=== PATIENT | male | born 1995 | race American Indian/Alaskan Native ===

== ENCOUNTER 2016-10-23 12:16 | Emergency (ER) | payer SELFPAY ==
[2016-10-23 12:41] VITALS: BP 139/85
== END 2016-10-23 12:58 | disposition left against medical advice (07) ==
LOC: ED 12:16
DX: Z53.21 Procedure and treatment not carried out due to patient leaving prior to being seen by health care provider (principal)
CPT/HCPCS: 87591

== ENCOUNTER 2019-08-14 20:50 | Emergency (ER) | payer SELFPAY ==
--- NOTE | 2019-08-14 21:35 | XRay Report ---
CHEST 2 VIEWS INDICATION / CLINICAL INFORMATION: Chest pain. COMPARISON: None available. FINDINGS: SUPPORT DEVICES: None. HEART / MEDIASTINUM: No significant abnormality. LUNGS / PLEURA: No significant pulmonary or pleural abnormality. No pneumothorax. ADDITIONAL FINDINGS: No significant additional findings. IMPRESSION: 1. No acute findings. Signer Name: Oli Ochoa MD Signed: 08/14/2019 9:31 PM Workstation Name: [id number]
[2019-08-14] MEDS ORDERED: predniSONE 20 MG TAB PO ONE (22:38)
[2019-08-14] MEDS ORDERED: IBUPROFEN 600 MG TAB PO ONE (22:38)
--- NOTE | 2019-08-15 00:04 | Emergency Department Report ---
ED General Adult HPI - General Chief complaint: Upper Respiratory Infection Stated complaint: CHEST PAIN, NAUSEA Source: patient Mode of arrival: Ambulatory Limitations: No Limitations - History of Present Illness Initial comments: Patient is a 24-year-old -[place] male with no past medical history and who does not smoke cigarettes, use illegal drugs or drink alcohol presents to the ED with complaint of acute exacerbation of his chronic left-sided chest wall pain, pleuritic chest pain and persistent dry cough for the last 1 week. Patient states that he has had these symptoms intermittently for the last 6 months and has been evaluated in the ED establishment and each time he is told that his test results are normal and his discharge home with no medicine. Mihir nt states that the last 1 week he has been having persistent severe dry cough and worsening left-sided chest wall pain with each coughing episode. Patient also states that his job entails heavy lifting and being on his feet all day at work and that after the shift at work the pain gets worse. Patient states that the last time he was in the emergency department was 2 weeks ago for evaluation of similar symptoms. Patient states that the current symptoms are no different from the previous symptoms that he has had before. Patient denies diaphoresis, shortness of breath, sore throat, fever, chills, dizziness, syncope, palpitations, nausea, vomiting, abdominal pain, numbness and tingling or weakness of upper and lower extremities bilaterally and headache. MD Complaint: Dry cough, left-sided chest pain; pleuritic chest pain -: Gradual, month(s) (6) Location: chest Radiation: non-radiation Severity scale (0 -10): 7 Quality: aching, sharp Consistency: intermittent Improves with: none Worsens with: movement, other (Heavy lifting) Associated Symptoms: denies other symptoms, chest pain (Left-sided chest wall pain). denies: confusion, cough, diaphoresis, fever/chills, headaches, loss of appetite, malaise, nausea/vomiting, rash, seizure, shortness of breath, syncope, weakness Treatments Prior to Arrival: none - Related Data Previous Rx's Medication Instructions Recorded Last Taken Type Benzonatate [Tessalon Perles] 100 mg PO Q8HR #30 capsule 08/15/19 Unknown Rx Naproxen 500 mg PO Q12H PRN #24 tablet 08/15/19 Unknown Rx Allergies Allergy/AdvReac Type Severity Reaction Status Date / Time No Known Allergies Allergy Unverified 10/23/16 12:40 ED Review of Systems ROS: Stated complaint: CHEST PAIN, NAUSEA Other details as noted in HPI Constitutional: denies: chills, fever Eyes: denies: eye pain, eye discharge, vision change ENT: denies: ear pain, throat pain Respiratory: cough. denies: shortness of breath, wheezing Cardiovascular: chest pain (Left-sided chest wall pain and pleuritic chest pain with cough). denies: palpitations Endocrine: no symptoms reported Gastrointestinal: denies: abdominal pain, nausea, diarrhea Genitourinary: denies: urgency, dysuria Musculoskeletal: denies: back pain, joint swelling, arthralgia Skin: denies: rash, lesions Neurological: denies: headache, weakness, paresthesias Psychiatric: denies: anxiety, depression Hematological/Lymphatic: denies: easy bleeding, easy bruising ED Past Medical Hx - Past Medical History Previous Medical History?: No - Surgical History Past Surgical History?: No - Social History Smoking Status: Never Smoker Substance Use Type: None - Medications Home Medications: Home Medications Medication Instructions Recorded Confirmed Last Taken Type Benzonatate [Tessalon Perles] 100 mg PO Q8HR #30 capsule 08/15/19 Unknown Rx Naproxen 500 mg PO Q12H PRN #24 tablet 08/15/19 Unknown Rx ED Physical Exam - General Limitations: No Limitations General appearance: alert, in no apparent distress - Head Head exam: Present: atraumatic, normocephalic - Eye Eye exam: Present: normal appearance, PERRL, EOMI - ENT ENT exam: Present: normal exam, normal orophraynx, mucous membranes moist, TM's normal bilaterally, normal external ear exam - Neck Neck exam: Present: normal inspection, full ROM - Respiratory Respiratory exam: Present: normal lung sounds bilaterally, chest wall tenderness (Palpable reproducible left-sided chest wall tenderness). Absent: respiratory distress, wheezes, rales, rhonchi, accessory muscle use - Cardiovascular Cardiovascular Exam: Present: regular rate, normal rhythm. Absent: systolic murmur, diastolic murmur, rubs, gallop - GI/Abdominal GI/Abdominal exam: Present: soft, normal bowel sounds. Absent: tenderness, guarding, hyperactive bowel sounds - Extremities Exam Extremities exam: Present: normal inspection, full ROM, normal capillary refill - Back Exam Back exam: Present: normal inspection, full ROM. Absent: tenderness, CVA tenderness (R), CVA tenderness (L), muscle spasm, paraspinal tenderness, vertebral tenderness - Neurological Exam Neurological exam: Present: alert, oriented X3, CN II-XII intact, normal gait, reflexes normal - Psychiatric Psychiatric exam: Present: normal affect, normal mood - Skin Skin exam: Present: warm, dry, intact, normal color. Absent: rash ED Course Vital Signs 08/14/19 08/14/19 20:56 23:35 Temperature 98.9 F Pulse Rate 91 H Respiratory 18 18 Rate Blood Pressure 144/88 O2 Sat by Pulse 99 Oximetry ED Medical Decision Making - Radiology Data Radiology results: report reviewed, image reviewed Findings [facility] [address] [place] [address] XRay Report Signed Patient: REEMA REED MR#: [id number] : 1995 Acct:[id number] Age/Sex: 24 / M ADM Date: 08/14/19 Loc: ED Attending Dr: Ordering Physician: ELY THOMAS MD Date of Service: 08/14/19 Procedure(s): XR chest routine 2V Accession Number(s): [id number] cc: ED MD WILLIAM Fluoro Time In Minutes: CHEST 2 VIEWS INDICATION / CLINICAL INFORMATION: Chest pain. COMPARISON: None available. FINDINGS: SUPPORT DEVICES: None. HEART / MEDIASTINUM: No significant abnormality. LUNGS / PLEURA: No significant pulmonary or pleural abnormality. No pneumothorax. ADDITIONAL FINDINGS: No significant additional findings. IMPRESSION: 1. No acute findings. Signer Name: Oli Ochoa MD Signed: 08/14/2019 9:31 PM Workstation Name: [id number] Transcribed By: DT Dictated By: Ras Ochoa MD Electronically Authenticated By: Ras Ochoa MD Signed Date/Time: 08/14/192130 DD/ 29 TD/TT: - Medical Decision Making This is a 24-year-old -[place] male with no past medical history and who does not smoke cigarettes, use illegal drugs or drink alcohol presents to the ED with complaint of acute exacerbation of his chronic left-sided chest wall pain, pleuritic chest pain and persistent dry cough for the last 1 week. Patient states that he has had these symptoms intermittently for the last 6 months and has been evaluated in the ED establishment and each time he is told that his test results are normal and his discharge home with no medicine. Patient states that the last 1 week he has been having persistent severe dry cough and worsening left-sided chest wall pain with each coughing episode. Patient also states that his job entails heavy lifting and being on his feet all day at work and that after the shift at work the pain gets worse. Patient states that the last time he was in the emergency department was 2 weeks ago for evaluation of similar symptoms. Patient states that the current symptoms are no different from the previous symptoms that he has had before. In the ED, patient is alert and oriented x3 and is not in distress. Chest x-ray shows no acute cardiopulmonary abnormalities or pneumonitis. Physical exam shows reproducible left-sided chest wall tenderness consistent with costochondritis of the chest wall. The patient is PERC negative per Wells criteria, and is heart score is 0. Patient symptoms are unlikely to be cardiac in etiology based on the chronic nature of his symptoms, heart score of 0 due to absence of cardiac risk factors. Patient was treated for pain with anti-inflammatory medications. On reevaluation, patient's pain is well controlled with medication. Patient was discharged home on anti-inflammatory medications and cough medications and was advised to follow-up with his primary care physician in 7 to 10 days for reevaluation or return to the ED immediately if symptoms get worse. - Differential Diagnosis Bronchitis; Chest wall muscle strain; Costochondritis Critical care attestation.: If time is entered above; I have spent that time in minutes in the direct care of this critically ill patient, excluding procedure time. ED Disposition Clinical Impression: Costochondritis, Chronic chest wall pain Chronic bronchitis Qualifiers: Chronic bronchitis type: simple Qualified Code(s): J41.0 - Simple chronic bronchitis Disposition: - TO HOME OR SELFCARE Is pt being admited?: No Does the pt Need Aspirin: No Condition: Stable Instructions: Chronic Bronchitis (ED), Chest Pain (ED), Costochondritis (ED) Additional Instructions: Take medication with food, drink plenty of fluids and follow-up with your primary care physician in 5 to 7 days for reevaluation. Return to the ED immediately if symptoms get worse. Prescriptions: Naproxen 500 mg PO Q12H PRN #24 tablet PRN Reason: Pain , Severe (7-10) Benzonatate [Tessalon Perles] 100 mg PO Q8HR #30 capsule Referrals: [facility] [Provider Group] - 7-10 days Time of Disposition: 00:01 Print Language: FAROESE
== END 2019-08-15 00:30 | disposition home or self-care (01) ==
LOC: ED 20:50
DX: M94.0 Chondrocostal junction syndrome [Tietze] (principal); J41.0 Simple chronic bronchitis
CPT/HCPCS: 71046; 99283; J7512; 93005